=== PATIENT | female | born 1990 | race American Indian/Alaskan Native ===

== ENCOUNTER 2017-10-16 13:15 | Emergency (ER) | payer OTHER ==
[2017-10-16 13:31] VITALS: BP 119/91
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
== END 2017-10-16 16:19 | disposition home or self-care (01) ==
LOC: ED 13:15
DX: M25.511 Pain in right shoulder (principal); F17.200 Nicotine dependence, unspecified, uncomplicated; Y93.89 Activity, other specified; V49.9XXA Car occupant (driver) (passenger) injured in unspecified traffic accident, initial encounter; Y99.8 Other external cause status; Y92.410 Unspecified street and highway as the place of occurrence of the external cause
CPT/HCPCS: 99282